=== PATIENT | female | born 1945 | race Caucasian/White ===

== ENCOUNTER 2020-12-22 07:50 | Emergency (ER) | payer MEDICARE, MEDICAID ==
[2020-12-22] MEDS ORDERED: Morphine 4 MG/ML VIAL ONE (08:19)
[2020-12-22] MEDS ORDERED: Ondansetron PF 4 MG/2 ML Vial ONE (08:19)
[2020-12-22 08:31] LABS: #Eosinphils 0.2 10x3/uL (0.0-0.5); #Monocytes 0.5 10x3/uL (0.0-1.1); #Neutrophils 3.5 10x3/uL (1.5-8.4); %Basophils 0.3 % (0.0-2.0); %Eosinophils 2.6 % (0.0-6.0); %Lymphocytes 35.2 % (18.0-47.0); %Monocytes 7.2 % (0.0-10.0); %Neutrophils 54.1 % (40.0-75.0); Hemoglobin 11.2 g/dL (12.0-15.5); Mean Corpuscular HGB CONC 30.9 g/dL (32.0-36.0); Mean Corpuscular Hemoglobin 31.1 pg (27.0-33.0); Mean Corpuscular Volume 100.6 fl (81.6-98.3); Mean Platelet Volume 10.9 fl (7.4-10.4); Platelet Count 193 10x3/uL (150-450); RBC Distribution Width 12.8 % (11.5-14.5); White Blood Cell (WBC) Count 6.5 10x3/uL (3.5-10.5)
[2020-12-22 08:46] LABS: ALT (SGPT) 10 U/L (8-55); AST (SGOT) 11 U/L (5-34); Albumin 3.6 g/dL (3.4-4.8); Alkaline Phosphatase 61 U/L (40-110); Anion Gap 16 mmol/L (10-20); BUN (Urea Nitrogen) 21 mg/dL (9.8-20.1); Bilirubin, Total 0.3 mg/dL (0.2-1.2); Calc. Creatinine Clearance 0 mL/min (70-130); Calcium 8.7 mg/dL (7.8-10.44); Carbon Dioxide 36 mmol/L (23-31); Chloride 96 mmol/L (98-107); Globulin 2.5 g/dL (2.4-3.5); Glucose 107 mg/dL (83-110); Magnesium 2.2 mg/dL (1.6-2.6); Potassium 4.2 mmol/L (3.5-5.1); Protein, Total 6.1 g/dL (5.8-8.1); Sodium 144 mmol/L (136-145)
[2020-12-22 09:06] LABS: INR-International Normal Ratio 0.9; PTT 24.5 sec (22.0-33.0); Prothrombin Time 10.4 sec (9.5-12.1)
[2020-12-22] MEDS ORDERED: Metoclopramide HCl 10 MG/2 ML VIAL ONE (09:42)
[2020-12-22 16:38] LABS: Bilirubin Neg (Negative); Blood, Urine Negative (Negative); Clarity Clear (Clear); Glucose, Urine (Dipstick) Normal (Negative); Ketone, Urine Negative (Negative); Leukocyte 25 (Negative); Nitrite Negative (Negative); Protein, Urine (Dipstick) 30 mg/dl (Neg-Trace); Specific Gravity, Urine 1.025 (1.002-1.036)
[2020-12-22 16:57] LABS: Bacteria/HPF Rare-Few HPF (None Seen); RBC/HPF 0-3 HPF (0-3); Renal Epithelial 0-3 HPF (None Seen); WBC/HPF 0-3 HPF (0-3)
== END 2020-12-22 18:11 ==
LOC: CSHERS 07:50
DX: S80.02XA Contusion of left knee, initial encounter (principal); S40.011A Contusion of right shoulder, initial encounter; I11.0 Hypertensive heart disease with heart failure; I50.9 Heart failure, unspecified; E78.5 Hyperlipidemia, unspecified; E66.9 Obesity, unspecified; M54.5 Low back pain; J44.9 Chronic obstructive pulmonary disease, unspecified; I25.10 Atherosclerotic heart disease of native coronary artery without angina pectoris; I25.2 Old myocardial infarction; Z87.891 Personal history of nicotine dependence; Z91.81 History of falling; W19.XXXA Unspecified fall, initial encounter
CPT/HCPCS: 72100; 80053; 81001; 83735; 85025; 85610; 85730; 93005; 96374; 96375; J2270; J2405; J2765

== ENCOUNTER 2022-02-04 21:54 | Emergency (ER) | payer MEDICARE, MEDICAID ==
[2022-02-04] MEDS ORDERED: Ketorolac Tromethamine 30 MG/ML VIAL ONE ×2 (23:10→23:11)
== END 2022-02-05 00:18 | disposition home or self-care (01) ==
LOC: CSHERS 21:54
DX: M25.571 Pain in right ankle and joints of right foot (principal); I25.2 Old myocardial infarction; I11.0 Hypertensive heart disease with heart failure; I50.9 Heart failure, unspecified; E78.5 Hyperlipidemia, unspecified; J44.9 Chronic obstructive pulmonary disease, unspecified; Z87.891 Personal history of nicotine dependence; Z79.899 Other long term (current) drug therapy
CPT/HCPCS: 96372; J1885

== ENCOUNTER 2022-04-22 01:00 | Inpatient (IN) | payer MEDICARE, MEDICAID ==
[2022-04-22 02:10] LABS: #Eosinphils 0.3 10x3/uL (0.0-0.5); #Monocytes 0.6 10x3/uL (0.0-1.1); #Neutrophils 6.4 10x3/uL (1.5-8.4); %Basophils 0.2 % (0.0-2.0); %Lymphocytes 15.9 % (18.0-47.0); %Monocytes 7.1 % (0.0-10.0); %Neutrophils 72.9 % (40.0-75.0); Hemoglobin 9.8 g/dL (12.0-15.5); Mean Corpuscular HGB CONC 29.5 g/dL (32.0-36.0); Mean Corpuscular Volume 101.5 fl (81.6-98.3); Platelet Count 184 10x3/uL (150-450); RBC Distribution Width 13.3 % (11.5-14.5); Red Blood Cell (RBC) Count 3.27 10x6/uL (3.90-5.03); White Blood Cell (WBC) Count 8.8 10x3/uL (3.5-10.5)
[2022-04-22 02:19] LABS: ALT (SGPT) 12 U/L (8-55); AST (SGOT) 17 U/L (5-34); Albumin 3.6 g/dL (3.4-4.8); Alkaline Phosphatase 67 U/L (40-110); BUN (Urea Nitrogen) 26 mg/dL (9.8-20.1); Bilirubin, Total 0.3 mg/dL (0.2-1.2); Calc. Creatinine Clearance 0 mL/min (70-130); Calcium 8.9 mg/dL (7.8-10.44); Estimated GFR 45; Globulin 2.7 g/dL (2.4-3.5); Glucose 116 mg/dL (83-110); Magnesium 2.1 mg/dL (1.6-2.6); Protein, Total 6.3 g/dL (5.8-8.1)
[2022-04-22 02:26] LABS: Anion Gap 14 mmol/L (10-20); Chloride 92 mmol/L (98-107); Potassium 4.4 mmol/L (3.5-5.1); Sodium 143 mmol/L (136-145)
[2022-04-22 02:35] LABS: Carbon Dioxide Greater than 37 mmol/L (23-31)
[2022-04-22 02:54] LABS: Hypochromia SLIGHT = 6-15 cells (100X) (0-5/hpf); Platelet Morphology Comment Appears Adequate; Stomatocytes SLIGHT = 2-5 cells (100X) (0-1/hpf)
[2022-04-22 03:05] LABS: INR-International Normal Ratio 0.9
[2022-04-22] MEDS ORDERED: methylPREDNISolone Sod Succ/PF 125 MG/2 ML VIAL ONE (03:08)
[2022-04-22] MEDS ORDERED: Nitroglycerin 2% Ointment 1 INCH/1 GM Packet ONE (03:09)
[2022-04-22] MEDS ORDERED: Furosemide 40 MG/4 ML VIAL ONE (03:09)
[2022-04-22 03:32] LABS: SARS-CoV-2 NAA Rapid Test Not Detected (NotDetected)
[2022-04-22] MEDS ORDERED: Ondansetron ODT 4 MG TAB PO PRN (05:06)
[2022-04-22] MEDS ORDERED: Ondansetron PF 4 MG/2 ML Vial IVP PRN (05:06)
[2022-04-22] MEDS ORDERED: Senokot S 8.6-50 MG TAB PO PRN (05:06)
[2022-04-22] MEDS ORDERED: Acetaminophen 325 MG TAB PO PRN (05:06)
[2022-04-22 05:15] VITALS: BMI 60.1
[2022-04-22 05:19] LABS: Actual Bicarbonate (HCO3a) 41.2 mEq/L (22-28); Base Excess (BEa) 12.9 mEq/L (-2.0 to +3.0); Calcium, Ionized (arterial) 1.11 mmol/L (1.12-1.30); Carboxyhemoglobin (COHb) 0.6 gm% (0.0-3.0); Hemoglobin (Hb) 10.5 g/dL (12.0-16.0); O2 Tension (PaO2), arterial 88.5 mmHg (> 70.0); Potassium - ABG Lab 4.3 mmol/L (3.70-5.30); Puncture Site LRA; pH, Arterial 7.34 (7.35-7.45)
[2022-04-22] MEDS ORDERED: Furosemide 40 MG/4 ML VIAL SLOW IVP SCH (06:00)
[2022-04-22 06:14] LABS: Thyroid Stimulating Hormone 1.1649 uIU/mL (0.35-4.94)
[2022-04-22] MEDS: methylPREDNISolone Sod Succ 40 MG VIAL IVP SCH ×2 (06:19→16:47)
[2022-04-22] MEDS: Arformoterol 15 MCG/2 ML NEB NEB SCH ×2 (07:37→19:17)
[2022-04-22] MEDS: Budesonide 0.5 MG/2 ML NEB NEB SCH ×2 (07:38→19:18)
[2022-04-22 07:59] LABS: Ferritin 56.6 ng/mL (10-291)
[2022-04-22] MEDS: Azithromycin 500 MG in Sodium Chloride 0.9% 250 ML 250 ML IVPB SCH (08:15)
[2022-04-22] MEDS: Potassium Chloride 20 MEQ TAB PO SCH (08:16)
[2022-04-22] MEDS: Clopidogrel Bisulfate 75 MG TAB PO SCH (08:16)
[2022-04-22] MEDS: Aspirin 81 mg Enteric Coated Tablet PO SCH (08:17)
[2022-04-22] MEDS: Enoxaparin Sodium 40 MG/0.4 ML SYRINGE SC SCH (08:18)
[2022-04-22] MEDS: Ezetimibe 10 MG TAB PO SCH (08:41)
[2022-04-22] MEDS: Furosemide 40 MG TAB PO SCH ×2 (08:43→14:07)
[2022-04-22 13:29] LABS: Hemoglobin A1c 4.9 % (4.0-6.0)
[2022-04-22] MEDS: Carvedilol 6.25 MG TAB PO SCH (16:47)
[2022-04-22] MEDS: Mometasone/Formoterol 200/5 60 PUFF INH SCH (19:19)
[2022-04-23 04:31] LABS: #Monocytes 0.5 10x3/uL (0.0-1.1); #Neutrophils 6.2 10x3/uL (1.5-8.4); %Basophils 0.1 % (0.0-2.0); %Lymphocytes 17.3 % (18.0-47.0); %Monocytes 6.6 % (0.0-10.0); %Neutrophils 75.4 % (40.0-75.0); Hemoglobin 9.3 g/dL (12.0-15.5); Mean Corpuscular HGB CONC 31.5 g/dL (32.0-36.0); Mean Corpuscular Hemoglobin 30.3 pg (27.0-33.0); Mean Corpuscular Volume 96.1 fl (81.6-98.3); Mean Platelet Volume 10.9 fl (7.4-10.4); Platelet Count 188 10x3/uL (150-450); RBC Distribution Width 13.1 % (11.5-14.5); Red Blood Cell (RBC) Count 3.07 10x6/uL (3.90-5.03); White Blood Cell (WBC) Count 8.2 10x3/uL (3.5-10.5)
[2022-04-23 04:49] LABS: BUN (Urea Nitrogen) 30 mg/dL (9.8-20.1); Calc. Creatinine Clearance 100 mL/min (70-130); Calcium 8.7 mg/dL (7.8-10.44); Estimated GFR 54; Glucose 138 mg/dL (83-110)
[2022-04-23 04:57] LABS: Anion Gap 14 mmol/L (10-20); Chloride 88 mmol/L (98-107); Potassium 4.1 mmol/L (3.5-5.1); Sodium 140 mmol/L (136-145)
[2022-04-23 04:59] LABS: Carbon Dioxide Greater than 37 mmol/L (23-31)
[2022-04-23] MEDS: methylPREDNISolone Sod Succ 40 MG VIAL IVP SCH ×2 (05:40→17:05)
[2022-04-23] MEDS: Potassium Chloride 20 MEQ TAB PO SCH (08:46)
[2022-04-23] MEDS: Furosemide 40 MG TAB PO SCH ×2 (08:46→13:43)
[2022-04-23] MEDS: Clopidogrel Bisulfate 75 MG TAB PO SCH (08:46)
[2022-04-23] MEDS: Ezetimibe 10 MG TAB PO SCH (08:46)
[2022-04-23] MEDS: Aspirin 81 mg Enteric Coated Tablet PO SCH (08:46)
[2022-04-23] MEDS: Enoxaparin Sodium 40 MG/0.4 ML SYRINGE SC SCH (08:47)
[2022-04-23] MEDS: Azithromycin 500 MG in Sodium Chloride 0.9% 250 ML 250 ML IVPB SCH (08:47)
[2022-04-23] MEDS: Budesonide 0.5 MG/2 ML NEB NEB SCH ×2 (08:51→19:20)
[2022-04-23] MEDS: Arformoterol 15 MCG/2 ML NEB NEB SCH ×2 (09:05→19:19)
[2022-04-23] MEDS: Carvedilol 6.25 MG TAB PO SCH ×2 (09:51→17:05)
[2022-04-23] MEDS: Mometasone/Formoterol 200/5 60 PUFF INH SCH (10:08)
[2022-04-23] MEDS: Mirtazapine 15 MG TAB PO SCH (21:09)
[2022-04-24] MEDS: methylPREDNISolone Sod Succ 40 MG VIAL IVP SCH ×2 (05:51→17:21)
[2022-04-24] MEDS: Budesonide 0.5 MG/2 ML NEB NEB SCH ×2 (07:30→19:20)
[2022-04-24] MEDS: Arformoterol 15 MCG/2 ML NEB NEB SCH ×2 (07:30→19:20)
[2022-04-24] MEDS: Azithromycin 500 MG in Sodium Chloride 0.9% 250 ML 250 ML IVPB SCH (08:13)
[2022-04-24] MEDS: Enoxaparin Sodium 40 MG/0.4 ML SYRINGE SC SCH (08:13)
[2022-04-24] MEDS: Carvedilol 6.25 MG TAB PO SCH ×2 (08:14→16:45)
[2022-04-24] MEDS: Clopidogrel Bisulfate 75 MG TAB PO SCH (08:14)
[2022-04-24] MEDS: Potassium Chloride 20 MEQ TAB PO SCH (08:14)
[2022-04-24] MEDS: Aspirin 81 mg Enteric Coated Tablet PO SCH (08:14)
[2022-04-24] MEDS: Furosemide 40 MG TAB PO SCH ×2 (08:14→14:17)
[2022-04-24] MEDS: Ezetimibe 10 MG TAB PO SCH (08:20)
[2022-04-24] MEDS: Mirtazapine 15 MG TAB PO SCH (19:36)
[2022-04-25 05:00] LABS: #Monocytes 0.6 10x3/uL (0.0-1.1); #Neutrophils 6.2 10x3/uL (1.5-8.4); %Basophils 0.1 % (0.0-2.0); %Lymphocytes 13.6 % (18.0-47.0); %Monocytes 7.6 % (0.0-10.0); %Neutrophils 77.2 % (40.0-75.0); Hemoglobin 10.3 g/dL (12.0-15.5); Mean Corpuscular HGB CONC 30.1 g/dL (32.0-36.0); Mean Corpuscular Hemoglobin 29.3 pg (27.0-33.0); Mean Corpuscular Volume 97.4 fl (81.6-98.3); Mean Platelet Volume 11.3 fl (7.4-10.4); Platelet Count 203 10x3/uL (150-450); RBC Distribution Width 13.2 % (11.5-14.5); Red Blood Cell (RBC) Count 3.51 10x6/uL (3.90-5.03)
[2022-04-25 05:01] LABS: BUN (Urea Nitrogen) 34 mg/dL (9.8-20.1); Calc. Creatinine Clearance 104 mL/min (70-130); Calcium 8.4 mg/dL (7.8-10.44); Estimated GFR 57; Glucose 139 mg/dL (83-110)
[2022-04-25 05:08] LABS: Anion Gap 15 mmol/L (10-20); Chloride 94 mmol/L (98-107); Potassium 4.3 mmol/L (3.5-5.1); Sodium 146 mmol/L (136-145)
[2022-04-25 05:12] LABS: Carbon Dioxide 41 mmol/L (23-31)
[2022-04-25] MEDS: methylPREDNISolone Sod Succ 40 MG VIAL IVP SCH (05:35)
[2022-04-25] MEDS: Budesonide 0.5 MG/2 ML NEB NEB SCH ×2 (07:05→19:18)
[2022-04-25] MEDS: Arformoterol 15 MCG/2 ML NEB NEB SCH ×2 (07:05→19:18)
[2022-04-25] MEDS: Carvedilol 12.5 MG TAB PO SCH ×2 (08:38→17:06)
[2022-04-25] MEDS: Aspirin 81 mg Enteric Coated Tablet PO SCH (08:38)
[2022-04-25] MEDS: Potassium Chloride 20 MEQ TAB PO SCH (08:38)
[2022-04-25] MEDS: Clopidogrel Bisulfate 75 MG TAB PO SCH (08:38)
[2022-04-25] MEDS: Furosemide 40 MG TAB PO SCH ×2 (08:38→14:57)
[2022-04-25] MEDS: Enoxaparin Sodium 40 MG/0.4 ML SYRINGE SC SCH (08:39)
[2022-04-25] MEDS: Ezetimibe 10 MG TAB PO SCH (08:40)
[2022-04-25] MEDS ORDERED: Azithromycin 250 MG TAB PO SCH (09:00)
[2022-04-25 19:42] VITALS: BP 132/79; TEMP 98.6
[2022-04-25] MEDS: Mirtazapine 15 MG TAB PO SCH (19:46)
[2022-04-26] MEDS ORDERED: predniSONE 20 MG TAB PO SCH (08:00)
== END 2022-04-25 20:25 | DRG 291 ==
LOC: CSHERS 01:00 → CSHICU 04:51
PROVIDERS: ADMIT Family Medicine; ATTEND Hospitalist
PROC: 5A09457 Assistance with Respiratory Ventilation, 24-96 Consecutive Hours, Continuous Positive Airway Pressure (ICD-10-PCS; principal; 2022-04-22)
DX: I13.0 Hypertensive heart and chronic kidney disease with heart failure and stage 1 through stage 4 chronic kidney disease, or unspecified chronic kidney disease (principal); I50.33 Acute on chronic diastolic (congestive) heart failure; J96.21 Acute and chronic respiratory failure with hypoxia; J96.22 Acute and chronic respiratory failure with hypercapnia; J44.1 Chronic obstructive pulmonary disease with (acute) exacerbation; Z68.44 Body mass index [BMI] 60.0-69.9, adult; N17.9 Acute kidney failure, unspecified; G47.33 Obstructive sleep apnea (adult) (pediatric); I25.10 Atherosclerotic heart disease of native coronary artery without angina pectoris; E78.5 Hyperlipidemia, unspecified; K21.9 Gastro-esophageal reflux disease without esophagitis; E66.01 Morbid (severe) obesity due to excess calories; Z66 Do not resuscitate; R53.1 Weakness; D53.9 Nutritional anemia, unspecified; N18.31 Chronic kidney disease, stage 3a; Z60.2 Problems related to living alone; Z20.822 Contact with and (suspected) exposure to COVID-19; I25.2 Old myocardial infarction; Z95.5 Presence of coronary angioplasty implant and graft; Z99.81 Dependence on supplemental oxygen; Z87.891 Personal history of nicotine dependence; Z88.1 Allergy status to other antibiotic agents; Z88.2 Allergy status to sulfonamides; Z79.899 Other long term (current) drug therapy; Z79.82 Long term (current) use of aspirin; Z79.02 Long term (current) use of antithrombotics/antiplatelets; Z90.710 Acquired absence of both cervix and uterus; Z85.42 Personal history of malignant neoplasm of other parts of uterus; Z85.43 Personal history of malignant neoplasm of ovary; Z90.49 Acquired absence of other specified parts of digestive tract; Z98.49 Cataract extraction status, unspecified eye
CPT/HCPCS: 36415; 36416; 36600; 70450; 71045; 72125; 80048; 80053; 80061; 82607; 82728; 82805; 83036; 83735; 83880; 84443; 84484; 85025; 85610; 85730; 93005; 93306; 94640; 94660; 94760; 96374; 96375; J0456; J1650; J1940; J2920; J2930; J7050; J7620; J7626; U0002

== ENCOUNTER 2022-06-08 00:15 | Emergency (ER) | payer MEDICARE, MEDICAID ==
[2022-06-08] MEDS ORDERED: Mag-Al Plus 1200 MG/1200 MG/120 MG/30 ML UDCUP ONE (01:23)
== END 2022-06-08 03:10 | disposition home or self-care (01) ==
LOC: CSHERS 00:15
DX: K21.9 Gastro-esophageal reflux disease without esophagitis (principal); I25.10 Atherosclerotic heart disease of native coronary artery without angina pectoris; I11.0 Hypertensive heart disease with heart failure; I50.9 Heart failure, unspecified; I25.2 Old myocardial infarction; E78.5 Hyperlipidemia, unspecified; J44.9 Chronic obstructive pulmonary disease, unspecified; Z87.891 Personal history of nicotine dependence; Z79.899 Other long term (current) drug therapy; Z79.82 Long term (current) use of aspirin
CPT/HCPCS: 99284

== ENCOUNTER 2022-07-14 22:38 | Inpatient (IN) | payer MEDICARE, MEDICAID ==
[2022-07-14 23:14] LABS: #Eosinphils 0.3 10x3/uL (0.0-0.5); #Monocytes 0.7 10x3/uL (0.0-1.1); #Neutrophils 5.8 10x3/uL (1.5-8.4); %Basophils 0.3 % (0.0-2.0); %Eosinophils 3.5 % (0.0-6.0); %Lymphocytes 28.4 % (18.0-47.0); %Monocytes 7.4 % (0.0-10.0); %Neutrophils 59.8 % (40.0-75.0); Hemoglobin 9.6 g/dL (12.0-15.5); Mean Corpuscular HGB CONC 29.5 g/dL (32.0-36.0); Mean Corpuscular Hemoglobin 28.8 pg (27.0-33.0); Mean Corpuscular Volume 97.6 fl (81.6-98.3); Mean Platelet Volume 10.4 fl (7.4-10.4); Platelet Count 237 10x3/uL (150-450); RBC Distribution Width 14.2 % (11.5-14.5); Red Blood Cell (RBC) Count 3.33 10x6/uL (3.90-5.03); White Blood Cell (WBC) Count 9.7 10x3/uL (3.5-10.5)
[2022-07-14 23:28] LABS: ALT (SGPT) 10 U/L (8-55); AST (SGOT) 13 U/L (5-34); Albumin 3.8 g/dL (3.4-4.8); Alkaline Phosphatase 92 U/L (40-110); BUN (Urea Nitrogen) 17 mg/dL (9.8-20.1); Bilirubin, Total 0.3 mg/dL (0.2-1.2); Calc. Creatinine Clearance 0 mL/min (70-130); Estimated GFR 58; Globulin 2.3 g/dL (2.4-3.5); Glucose 98 mg/dL (83-110); Protein, Total 6.1 g/dL (5.8-8.1)
[2022-07-14 23:36] LABS: Anion Gap 16 mmol/L (10-20); Carbon Dioxide 38 mmol/L (23-31); Chloride 95 mmol/L (98-107); Potassium 3.9 mmol/L (3.5-5.1); Sodium 145 mmol/L (136-145)
[2022-07-15] MEDS ORDERED: Nitroglycerin 2% Ointment 1 INCH/1 GM Packet ONE (00:06)
[2022-07-15] MEDS ORDERED: Aspirin Chewable 81 MG TAB ONE ×2 (00:06→08:28)
[2022-07-15] MEDS ORDERED: Acetaminophen 325 MG TAB PO PRN (00:33)
[2022-07-15] MEDS ORDERED: Guaifenesin DM 100-10/5 ML UDCUP PO PRN (00:33)
[2022-07-15] MEDS ORDERED: Ondansetron PF 4 MG/2 ML Vial IVP PRN (00:33)
[2022-07-15] MEDS ORDERED: Senokot S 8.6-50 MG TAB PO PRN (00:33)
[2022-07-15 00:37] LABS: Platelet Morphology Comment Appears Adequate; RBC Morphology Normal
[2022-07-15] MEDS ORDERED: Nitroglycerin 0.4 MG TAB (25 Tab Bottle) SL PRN ×2 (00:38→11:15)
[2022-07-15 07:24] LABS: SARS-CoV-2 NAA Rapid Test Not Detected (NotDetected)
[2022-07-15] MEDS ORDERED: Furosemide 40 MG TAB ONE (08:28)
[2022-07-15] MEDS ORDERED: Clopidogrel Bisulfate 75 MG TAB ONE (08:28)
[2022-07-15] MEDS ORDERED: Potassium Chloride 20 MEQ TAB ONE (08:28)
[2022-07-15] MEDS ORDERED: Enoxaparin Sodium 40 MG/0.4 ML SYRINGE ONE (08:29)
[2022-07-15] MEDS ORDERED: Carvedilol 12.5 MG TAB ONE (08:30)
[2022-07-15] MEDS: Clopidogrel Bisulfate 75 MG TAB PO SCH (09:04)
[2022-07-15] MEDS: Enoxaparin Sodium 40 MG/0.4 ML SYRINGE SC SCH (09:04)
[2022-07-15] MEDS: Potassium Chloride 20 MEQ TAB PO SCH (09:05)
[2022-07-15] MEDS: Aspirin 81 mg Enteric Coated Tablet PO SCH (09:05)
[2022-07-15] MEDS: Carvedilol 12.5 MG TAB PO SCH ×2 (09:05→18:00)
[2022-07-15] MEDS: Furosemide 40 MG TAB PO SCH ×2 (09:05→21:45)
[2022-07-15] MEDS: Ezetimibe 10 MG TAB PO SCH (09:05)
[2022-07-15] MEDS ORDERED: Verapamil 5 MG/2 ML VIAL ONE (09:40)
[2022-07-15] MEDS ORDERED: Heparin 10,000 UNITS/ 10 ML VIAL ONE ×2 (09:40→10:15)
[2022-07-15] MEDS ORDERED: Lidocaine 1% (PF) 30 ML VIAL ONE (09:40)
[2022-07-15] MEDS ORDERED: Nitroglycerin 50 MG/250 ML BOT 250 ML ONE (09:40)
[2022-07-15] MEDS ORDERED: Adenosine 6 MG/2 ML VIAL ONE (09:40)
[2022-07-15] MEDS ORDERED: Bivalirudin 250 MG VIAL ONE (09:41)
[2022-07-15] MEDS ORDERED: Midazolam HCl 2 mg/2 ml Vial ONE (09:50)
[2022-07-15] MEDS ORDERED: Fentanyl 100 MCG/2 ML VIAL ONE (09:50)
[2022-07-15] MEDS ORDERED: Atropine Sulfate 0.4 mg/1 ml Vial ONE (10:20)
[2022-07-15] MEDS ORDERED: PHENYLEPHRINE-NS 100 MCG/ML 10 ML SYRINGE ONE (10:20)
[2022-07-15] MEDS ORDERED: Iopamidol 300 61% 50 ML VIAL FS ONE (10:39)
[2022-07-15] MEDS ORDERED: Iopamidol 300 61% 100 ML VIAL FS ONE (10:39)
[2022-07-15] MEDS: Sodium Chloride 0.9% 1,000 ML IV SCH ×2 (11:20→21:45)
[2022-07-15 13:53] VITALS: BMI 58.6
[2022-07-15] MEDS: Sertraline 25 MG TAB PO SCH (21:45)
[2022-07-16 05:39] LABS: #Eosinphils 0.3 10x3/uL (0.0-0.5); #Monocytes 0.5 10x3/uL (0.0-1.1); #Neutrophils 5.3 10x3/uL (1.5-8.4); %Basophils 0.3 % (0.0-2.0); %Eosinophils 3.5 % (0.0-6.0); %Lymphocytes 20.3 % (18.0-47.0); %Monocytes 6.9 % (0.0-10.0); %Neutrophils 68.2 % (40.0-75.0); Hemoglobin 9.3 g/dL (12.0-15.5); Mean Corpuscular HGB CONC 29.2 g/dL (32.0-36.0); Mean Corpuscular Hemoglobin 28.8 pg (27.0-33.0); Mean Corpuscular Volume 98.5 fl (81.6-98.3); Mean Platelet Volume 10.5 fl (7.4-10.4); Platelet Count 216 10x3/uL (150-450); RBC Distribution Width 14.1 % (11.5-14.5); Red Blood Cell (RBC) Count 3.23 10x6/uL (3.90-5.03); White Blood Cell (WBC) Count 7.8 10x3/uL (3.5-10.5)
[2022-07-16 05:50] LABS: ALT (SGPT) 7 U/L (8-55); AST (SGOT) 12 U/L (5-34); Albumin 3.3 g/dL (3.4-4.8); Alkaline Phosphatase 81 U/L (40-110); BUN (Urea Nitrogen) 11 mg/dL (9.8-20.1); Bilirubin, Total 0.3 mg/dL (0.2-1.2); Calc. Creatinine Clearance 133 mL/min (70-130); Calcium 8.3 mg/dL (7.8-10.44); Estimated GFR 80; Globulin 2.3 g/dL (2.4-3.5); Glucose 113 mg/dL (83-110); Protein, Total 5.6 g/dL (5.8-8.1)
[2022-07-16 05:58] LABS: Anion Gap 12 mmol/L (10-20); Carbon Dioxide 39 mmol/L (23-31); Chloride 97 mmol/L (98-107); Potassium 3.7 mmol/L (3.5-5.1); Sodium 144 mmol/L (136-145)
[2022-07-16 06:13] LABS: Basophilic Stippling SLIGHT = 1-2 cells (100X) (None Seen); Hypochromia SLIGHT = 6-15 cells (100X) (0-5/hpf)
[2022-07-16 06:14] LABS: Platelet Morphology Comment Appears Adequate
[2022-07-16] MEDS: Ezetimibe 10 MG TAB PO SCH (08:04)
[2022-07-16] MEDS: Losartan Potassium 50 MG TAB PO SCH (08:04)
[2022-07-16] MEDS: Carvedilol 12.5 MG TAB PO SCH ×2 (08:05→18:36)
[2022-07-16] MEDS: Furosemide 40 MG TAB PO SCH ×2 (08:05→21:06)
[2022-07-16] MEDS: Clopidogrel Bisulfate 75 MG TAB PO SCH (08:14)
[2022-07-16] MEDS: Aspirin 81 mg Enteric Coated Tablet PO SCH (08:14)
[2022-07-16] MEDS: Potassium Chloride 20 MEQ TAB PO SCH (08:14)
[2022-07-16] MEDS: Enoxaparin Sodium 40 MG/0.4 ML SYRINGE SC SCH (08:18)
[2022-07-16 09:54] LABS: ALV-art Gradient 143.625 mmHg (0-20); Actual Bicarbonate (HCO3a) 41.9 mEq/L (22-28); CO2 Tension 93.1 mmHg (35.0-45.0); Calcium, Ionized (arterial) 1.12 mmol/L (1.12-1.30); Carboxyhemoglobin (COHb) 0.8 gm% (0.0-3.0); O2 Tension (PaO2), arterial 96.5 mmHg (> 70.0); Puncture Site LRA; pH, Arterial 7.27 (7.35-7.45)
[2022-07-16] MEDS: Sertraline 25 MG TAB PO SCH (21:06)
[2022-07-16] MEDS: Calcium Carbonate 500 MG ChewTAB PO PRN (21:26)
[2022-07-17 06:08] LABS: Anion Gap 15 mmol/L (10-20); BUN (Urea Nitrogen) 10 mg/dL (9.8-20.1); Calc. Creatinine Clearance 129 mL/min (70-130); Calcium 8.4 mg/dL (7.8-10.44); Carbon Dioxide 37 mmol/L (23-31); Chloride 96 mmol/L (98-107); Estimated GFR 77; Glucose 92 mg/dL (83-110); Potassium 3.8 mmol/L (3.5-5.1); Sodium 144 mmol/L (136-145)
[2022-07-17] MEDS: Sodium Chloride 0.9% 1,000 ML IV SCH (09:50)
[2022-07-17] MEDS: Aspirin 81 mg Enteric Coated Tablet PO SCH (10:23)
[2022-07-17] MEDS: Furosemide 40 MG TAB PO SCH ×2 (10:23→22:14)
[2022-07-17] MEDS: Losartan Potassium 50 MG TAB PO SCH (10:23)
[2022-07-17] MEDS: Ezetimibe 10 MG TAB PO SCH (10:23)
[2022-07-17] MEDS: Carvedilol 12.5 MG TAB PO SCH ×2 (10:23→17:51)
[2022-07-17] MEDS: Clopidogrel Bisulfate 75 MG TAB PO SCH (10:24)
[2022-07-17] MEDS: Potassium Chloride 20 MEQ TAB PO SCH (10:24)
[2022-07-17] MEDS: Enoxaparin Sodium 40 MG/0.4 ML SYRINGE SC SCH (10:24)
[2022-07-17] MEDS: Sertraline 25 MG TAB PO SCH (22:14)
[2022-07-17] MEDS: Calcium Carbonate 500 MG ChewTAB PO PRN (22:15)
[2022-07-18] MEDS ORDERED: Losartan Potassium 50 MG TAB PO SCH (09:00)
[2022-07-18] MEDS: Enoxaparin Sodium 40 MG/0.4 ML SYRINGE SC SCH (10:23)
[2022-07-18] MEDS: Potassium Chloride 20 MEQ TAB PO SCH (10:24)
[2022-07-18] MEDS: Ezetimibe 10 MG TAB PO SCH (10:24)
[2022-07-18] MEDS: Aspirin 81 mg Enteric Coated Tablet PO SCH (10:25)
[2022-07-18] MEDS: Clopidogrel Bisulfate 75 MG TAB PO SCH (10:25)
[2022-07-18] MEDS: Carvedilol 12.5 MG TAB PO SCH (10:25)
[2022-07-18] MEDS: Furosemide 40 MG TAB PO SCH (10:25)
[2022-07-18 12:04] VITALS: BP 165/75; TEMP 98.6
== END 2022-07-18 12:00 | DRG 246 ==
LOC: CSHERS 22:38 → CSHERHOLD 07-15 01:01 → INTOOBSV 07-15 01:01 → CSHTELE 07-15 10:51 → OBSVTOIN 07-16 16:12
PROVIDERS: ADMIT Student in an Organized Health Care Education/Training Program; ATTEND Internal Medicine
PROC: 027135Z Dilation of Coronary Artery, Two Arteries with Two Drug-eluting Intraluminal Devices, Percutaneous Approach (ICD-10-PCS; principal; 2022-07-15)
PROC: 4A023N7 Measurement of Cardiac Sampling and Pressure, Left Heart, Percutaneous Approach (ICD-10-PCS; 2022-07-15)
PROC: B2111ZZ Fluoroscopy of Multiple Coronary Arteries using Low Osmolar Contrast (ICD-10-PCS; 2022-07-15)
PROC: B2151ZZ Fluoroscopy of Left Heart using Low Osmolar Contrast (ICD-10-PCS; 2022-07-15)
PROC: B240ZZ3 Ultrasonography of Single Coronary Artery, Intravascular (ICD-10-PCS; 2022-07-15)
PROC: 5A09357 Assistance with Respiratory Ventilation, Less than 24 Consecutive Hours, Continuous Positive Airway Pressure (ICD-10-PCS; 2022-07-16)
DX: I25.110 Atherosclerotic heart disease of native coronary artery with unstable angina pectoris (principal); J96.21 Acute and chronic respiratory failure with hypoxia; J96.22 Acute and chronic respiratory failure with hypercapnia; E66.2 Morbid (severe) obesity with alveolar hypoventilation; I50.32 Chronic diastolic (congestive) heart failure; I13.0 Hypertensive heart and chronic kidney disease with heart failure and stage 1 through stage 4 chronic kidney disease, or unspecified chronic kidney disease; Z68.43 Body mass index [BMI] 50.0-59.9, adult; Z66 Do not resuscitate; J44.9 Chronic obstructive pulmonary disease, unspecified; I48.91 Unspecified atrial fibrillation; K21.9 Gastro-esophageal reflux disease without esophagitis; R91.8 Other nonspecific abnormal finding of lung field; D63.1 Anemia in chronic kidney disease; Z74.09 Other reduced mobility; R13.10 Dysphagia, unspecified; N18.30 Chronic kidney disease, stage 3 unspecified; F32.A Depression, unspecified; Z20.822 Contact with and (suspected) exposure to COVID-19; Z88.1 Allergy status to other antibiotic agents; Z90.49 Acquired absence of other specified parts of digestive tract; Z90.710 Acquired absence of both cervix and uterus; Z87.891 Personal history of nicotine dependence; Z82.49 Family history of ischemic heart disease and other diseases of the circulatory system; Z98.890 Other specified postprocedural states; Z88.8 Allergy status to other drugs, medicaments and biological substances; Z88.2 Allergy status to sulfonamides; Z99.81 Dependence on supplemental oxygen; Z95.5 Presence of coronary angioplasty implant and graft; Z79.899 Other long term (current) drug therapy; Z79.82 Long term (current) use of aspirin; Z98.49 Cataract extraction status, unspecified eye
CPT/HCPCS: 36415; 36600; 71045; 80048; 80053; 82805; 83880; 84443; 84484; 85025; 85347; 92928; 92978; 92979; 93005; 93010; 93458; 93970; 94640; 94660; 94760; 94762; 96372; 99152; 99153; C1725; C1753; C1769; C1874; C1887; C1894; C9600; G0378; J0153; J0461; J0583; J1644; J1650; J2001; J2250; J3010; J7050; J7620; Q9967; U0002

== ENCOUNTER 2022-08-06 04:12 | Observation (INO) | payer MEDICARE, MEDICAID ==
[2022-08-06 05:22] LABS: SARS-CoV-2 NAA Rapid Test Not Detected (NotDetected)
[2022-08-06] MEDS ORDERED: Nitroglycerin 2% Ointment 1 INCH/1 GM Packet ONE (05:28)
[2022-08-06] MEDS ORDERED: Meclizine HCl 25 MG TAB PO PRN ×2 (05:49→06:44)
[2022-08-06] MEDS ORDERED: Nitroglycerin 2% Ointment 1 INCH/1 GM Packet TOP SCH (06:00)
[2022-08-06 06:05] LABS: BUN (Urea Nitrogen) 12 mg/dL (9.8-20.1); Calc. Creatinine Clearance 0 mL/min (70-130); Calcium 8.8 mg/dL (7.8-10.44); Estimated GFR 71; Glucose 101 mg/dL (83-110); Magnesium 2.4 mg/dL (1.6-2.6)
[2022-08-06 06:13] LABS: Anion Gap 14 mmol/L (10-20); Carbon Dioxide 37 mmol/L (23-31); Chloride 94 mmol/L (98-107); Potassium 4.4 mmol/L (3.5-5.1); Sodium 141 mmol/L (136-145)
[2022-08-06 06:49] LABS: INR-International Normal Ratio 0.9; PTT 27.8 sec (22.0-33.0); Prothrombin Time 9.8 sec (9.5-12.1)
[2022-08-06] MEDS ORDERED: Albuterol Sulfate 2.5 mg/3 ml Neb NEB PRN (07:00)
[2022-08-06 07:38] VITALS: BMI 55.9
[2022-08-06] MEDS ORDERED: Furosemide 40 MG/4 ML VIAL SLOW IVP SCH (08:00)
[2022-08-06] MEDS: Losartan Potassium 50 MG TAB PO SCH (08:15)
[2022-08-06] MEDS: Enoxaparin Sodium 40 MG/0.4 ML SYRINGE SC SCH (08:15)
[2022-08-06] MEDS: Carvedilol 12.5 MG TAB PO SCH ×2 (08:15→17:07)
[2022-08-06] MEDS: Aspirin 81 mg Enteric Coated Tablet PO SCH (08:16)
[2022-08-06] MEDS: Ezetimibe 10 MG TAB PO SCH (08:16)
[2022-08-06] MEDS: Clopidogrel Bisulfate 75 MG TAB PO SCH (08:21)
[2022-08-06] MEDS: Potassium Chloride 20 MEQ TAB PO SCH (08:27)
[2022-08-06 09:16] LABS: Troponin I 0.013 ng/mL (< 0.028)
[2022-08-06] MEDS ORDERED: Furosemide 40 MG TAB PO SCH (14:00)
[2022-08-06] MEDS: Furosemide 40 MG TAB PO SCH (20:36)
[2022-08-06] MEDS ORDERED: Sertraline 25 MG TAB PO SCH (21:00)
[2022-08-07 06:58] VITALS: TEMP 97
[2022-08-07 09:01] VITALS: BP 116/67
[2022-08-07] MEDS: Furosemide 40 MG TAB PO SCH (09:02)
[2022-08-07] MEDS: Clopidogrel Bisulfate 75 MG TAB PO SCH (09:02)
[2022-08-07] MEDS: Carvedilol 12.5 MG TAB PO SCH (09:02)
[2022-08-07] MEDS: Losartan Potassium 50 MG TAB PO SCH (09:02)
[2022-08-07] MEDS: Enoxaparin Sodium 40 MG/0.4 ML SYRINGE SC SCH (09:03)
[2022-08-07] MEDS: Potassium Chloride 20 MEQ TAB PO SCH (09:03)
[2022-08-07] MEDS: Ezetimibe 10 MG TAB PO SCH (09:03)
[2022-08-07] MEDS: Aspirin 81 mg Enteric Coated Tablet PO SCH (09:03)
[2022-08-07 20:11] LABS: Hemoglobin A1c 4.4 % (4.0-6.0)
== END 2022-08-07 11:20 ==
LOC: CSHERS 04:12 → INTOOBSV 06:37 → CSHICU 06:37 → CSHTELE 18:45
PROVIDERS: ADMIT Family Medicine; ATTEND Internal Medicine
DX: R07.89 Other chest pain (principal); R91.8 Other nonspecific abnormal finding of lung field; I24.9 Acute ischemic heart disease, unspecified; I25.110 Atherosclerotic heart disease of native coronary artery with unstable angina pectoris; J44.9 Chronic obstructive pulmonary disease, unspecified; E66.2 Morbid (severe) obesity with alveolar hypoventilation; Z68.43 Body mass index [BMI] 50.0-59.9, adult; I10 Essential (primary) hypertension; K21.9 Gastro-esophageal reflux disease without esophagitis; E78.5 Hyperlipidemia, unspecified; Z20.822 Contact with and (suspected) exposure to COVID-19; J96.11 Chronic respiratory failure with hypoxia; J96.12 Chronic respiratory failure with hypercapnia; F17.210 Nicotine dependence, cigarettes, uncomplicated; Z79.82 Long term (current) use of aspirin; Z79.02 Long term (current) use of antithrombotics/antiplatelets; Z79.01 Long term (current) use of anticoagulants; Z79.899 Other long term (current) drug therapy; Z88.2 Allergy status to sulfonamides; Z88.8 Allergy status to other drugs, medicaments and biological substances; Z95.5 Presence of coronary angioplasty implant and graft
CPT/HCPCS: 80048; 83036; 83735; 84484 ×2; 85610; 85730; 93005; 94640 ×3; 94760; 99285; U0002; 36415; 96372; 96374; G0378; J1650; J1940; J7620

== ENCOUNTER 2022-08-19 13:52 | Inpatient (IN) | payer MEDICARE, MEDICAID ==
[2022-08-19 14:44] LABS: #Eosinphils 0.2 10x3/uL (0.0-0.5); #Monocytes 0.7 10x3/uL (0.0-1.1); #Neutrophils 5.3 10x3/uL (1.5-8.4); %Basophils 0.1 % (0.0-2.0); %Eosinophils 2.1 % (0.0-6.0); %Lymphocytes 20.2 % (18.0-47.0); %Monocytes 8.5 % (0.0-10.0); %Neutrophils 68.5 % (40.0-75.0); Hemoglobin 8.7 g/dL (12.0-15.5); Mean Corpuscular HGB CONC 28.8 g/dL (32.0-36.0); Mean Corpuscular Hemoglobin 29.3 pg (27.0-33.0); Mean Corpuscular Volume 101.7 fl (81.6-98.3); Mean Platelet Volume 11.4 fl (7.4-10.4); Platelet Count 274 10x3/uL (150-450); RBC Distribution Width 15.2 % (11.5-14.5); Red Blood Cell (RBC) Count 2.97 10x6/uL (3.90-5.03); White Blood Cell (WBC) Count 7.7 10x3/uL (3.5-10.5)
[2022-08-19 14:50] LABS: ALT (SGPT) 7 U/L (8-55); Albumin 3.2 g/dL (3.4-4.8); Alkaline Phosphatase 72 U/L (40-110); BUN (Urea Nitrogen) 18 mg/dL (9.8-20.1); Bilirubin, Total 0.3 mg/dL (0.2-1.2); Calc. Creatinine Clearance 0 mL/min (70-130); Calcium 8.7 mg/dL (7.8-10.44); Estimated GFR 77; Globulin 2.9 g/dL (2.4-3.5); Glucose 105 mg/dL (83-110); Protein, Total 6.1 g/dL (5.8-8.1)
[2022-08-19 14:57] LABS: Anion Gap 15 mmol/L (10-20); Carbon Dioxide 41 mmol/L (23-31); Chloride 92 mmol/L (98-107); Potassium 4.9 mmol/L (3.5-5.1); Sodium 143 mmol/L (136-145)
[2022-08-19 14:58] LABS: AST (SGOT) 19 U/L (5-34)
[2022-08-19 15:34] LABS: Hypochromia SLIGHT = 6-15 cells (100X) (0-5/hpf); Platelet Morphology Comment Appears Adequate
[2022-08-19 15:48] LABS: Actual Bicarbonate (HCO3v) 55 mEq/L (22-28); Base Excess 23.3 mEq/L (-2.0 to +3.0); Chloride (VBG) 92 mmol/L (98-106); Hemoglobin (Hb) 9.7 g/dL (11.7-16.1); Potassium (VBG) 4.47 mmol/L (3.70-5.30); Puncture Site Other Site; RapidComm Collect By CBN; Sodium 139.7 mmol/L (133-146); pH (venous) 7.25 (7.32-7.43)
[2022-08-19] MEDS ORDERED: Furosemide 100 MG/10 ML VIAL ONE (15:57)
[2022-08-19] MEDS ORDERED: Bisacodyl 5 MG TAB PO PRN (16:30)
[2022-08-19] MEDS ORDERED: HYDROcodone/Acetaminophen 5/325 mg Tablet PO PRN (16:30)
[2022-08-19] MEDS ORDERED: Acetaminophen 325 MG TAB PO PRN (16:30)
[2022-08-19] MEDS ORDERED: Ondansetron PF 4 MG/2 ML Vial IVP PRN (16:30)
[2022-08-19 17:57] LABS: Troponin I 0.018 ng/mL (< 0.028)
[2022-08-19 19:39] LABS: Bilirubin Neg (Negative); Blood, Urine Negative (Negative); Glucose, Urine (Dipstick) Normal (Negative); Ketone, Urine Negative (Negative); Leukocyte 25 (Negative); Nitrite Positive (Negative); Protein, Urine (Dipstick) Negative (Neg-Trace); Urobilinogen Normal mg/dL (Less than 2); pH, Urine 6.5 (5.0-9.0)
[2022-08-19 19:46] LABS: Clarity Hazy (Clear)
[2022-08-19 19:51] LABS: Bacteria/HPF 4+ HPF (None Seen); RBC/HPF None Seen HPF (0-3); Squamous Epithelial 0-3 HPF (0-3); WBC/HPF 0-3 HPF (0-3)
[2022-08-19 20:47] LABS: Troponin I 0.016 ng/mL (< 0.028)
[2022-08-19 20:49] LABS: SARS-CoV-2 NAA Rapid Test Not Detected (NotDetected)
[2022-08-19 21:20] VITALS: TEMP 98
[2022-08-19] MEDS ORDERED: Arformoterol 15 MCG/2 ML NEB NEB SCH (21:30)
[2022-08-19] MEDS ORDERED: Mometasone/Formoterol 200/5 60 PUFF INH SCH (21:30)
[2022-08-19] MEDS ORDERED: Cefepime 1 GM in Sodium Chloride 0.9% 100 ML IVPB SCH (21:30)
[2022-08-19] MEDS: methylPREDNISolone Sod Succ 40 MG VIAL IVP SCH (21:36)
[2022-08-19] MEDS: Famotidine/PF 20 mg/2ml Vial SLOW IVP SCH (21:36)
[2022-08-20] MEDS: methylPREDNISolone Sod Succ 40 MG VIAL IVP SCH ×2 (04:09→09:05)
[2022-08-20 04:58] LABS: ALT (SGPT) 8 U/L (8-55); AST (SGOT) 12 U/L (5-34); Albumin 3.3 g/dL (3.4-4.8); Alkaline Phosphatase 83 U/L (40-110); BUN (Urea Nitrogen) 18 mg/dL (9.8-20.1); Bilirubin, Total 0.4 mg/dL (0.2-1.2); Calc. Creatinine Clearance 131 mL/min (70-130); Calcium 8.6 mg/dL (7.8-10.44); Estimated GFR 80; Globulin 2.5 g/dL (2.4-3.5); Glucose 128 mg/dL (83-110); Protein, Total 5.8 g/dL (5.8-8.1)
[2022-08-20 05:24] LABS: Anion Gap 24 mmol/L (10-20); Carbon Dioxide 34 mmol/L (23-31); Chloride 91 mmol/L (98-107); Potassium 4.7 mmol/L (3.5-5.1); Sodium 144 mmol/L (136-145)
[2022-08-20 05:36] VITALS: BMI 58.4
[2022-08-20] MEDS ORDERED: Arformoterol 15 MCG/2 ML NEB NEB SCH (06:30)
[2022-08-20] MEDS ORDERED: Mometasone/Formoterol 200/5 60 PUFF INH SCH (06:30)
[2022-08-20] MEDS ORDERED: Furosemide 40 MG TAB PO SCH (07:30)
[2022-08-20 08:05] LABS: Actual Bicarbonate (HCO3v) 43 mEq/L (22-28); Base Excess 16.9 mEq/L (-2.0 to +3.0); Calcium, Ionized (venous) 1.01 mmol/L (1.16-1.32); Chloride (VBG) 92 mmol/L (98-106); Hemoglobin (Hb) 10.3 g/dL (11.7-16.1); Potassium (VBG) 4.66 mmol/L (3.70-5.30); Puncture Site Other Site; RapidComm Collect By CBN; Sodium 137.7 mmol/L (133-146); pH (venous) 7.48 (7.32-7.43)
[2022-08-20 08:17] LABS: #Monocytes 0.1 10x3/uL (0.0-1.1); #Neutrophils 5.8 10x3/uL (1.5-8.4); %Basophils 0.3 % (0.0-2.0); %Lymphocytes 11.5 % (18.0-47.0); %Neutrophils 86.6 % (40.0-75.0); Hemoglobin 9.1 g/dL (12.0-15.5); Mean Corpuscular HGB CONC 29.5 g/dL (32.0-36.0); Mean Corpuscular Hemoglobin 29.3 pg (27.0-33.0); Mean Platelet Volume 10.6 fl (7.4-10.4); Platelet Count 253 10x3/uL (150-450); RBC Distribution Width 15.1 % (11.5-14.5); Red Blood Cell (RBC) Count 3.11 10x6/uL (3.90-5.03); White Blood Cell (WBC) Count 6.7 10x3/uL (3.5-10.5)
[2022-08-20 08:43] LABS: Hypochromia SLIGHT = 6-15 cells (100X) (0-5/hpf)
[2022-08-20] MEDS ORDERED: Furosemide 40 MG/4 ML VIAL SLOW IVP SCH (09:00)
[2022-08-20] MEDS ORDERED: Cefepime 1 GM in Sodium Chloride 0.9% 100 ML IVPB SCH (09:00)
[2022-08-20] MEDS ORDERED: Enoxaparin Sodium 40 MG/0.4 ML SYRINGE SC SCH (09:00)
[2022-08-20] MEDS: Famotidine/PF 20 mg/2ml Vial SLOW IVP SCH (09:06)
[2022-08-20 12:03] VITALS: BP 119/74
== END 2022-08-20 18:25 | disposition hospice, inpatient (51) | DRG 189 ==
LOC: CSHERS 13:52 → CSHICU 20:50
PROVIDERS: ADMIT Student in an Organized Health Care Education/Training Program; ATTEND Family Medicine
PROC: 5A09357 Assistance with Respiratory Ventilation, Less than 24 Consecutive Hours, Continuous Positive Airway Pressure (ICD-10-PCS; principal; 2022-08-19)
DX: J96.21 Acute and chronic respiratory failure with hypoxia (principal); G93.41 Metabolic encephalopathy; E66.2 Morbid (severe) obesity with alveolar hypoventilation; J44.1 Chronic obstructive pulmonary disease with (acute) exacerbation; Z20.822 Contact with and (suspected) exposure to COVID-19; J96.22 Acute and chronic respiratory failure with hypercapnia; Z51.5 Encounter for palliative care; Z66 Do not resuscitate; I25.10 Atherosclerotic heart disease of native coronary artery without angina pectoris; I10 Essential (primary) hypertension; E78.5 Hyperlipidemia, unspecified; Z91.14 Patient's other noncompliance with medication regimen; Z95.5 Presence of coronary angioplasty implant and graft; Z79.82 Long term (current) use of aspirin; Z99.81 Dependence on supplemental oxygen; Z79.899 Other long term (current) drug therapy; Z79.02 Long term (current) use of antithrombotics/antiplatelets; Z88.8 Allergy status to other drugs, medicaments and biological substances; Z88.1 Allergy status to other antibiotic agents; Z88.2 Allergy status to sulfonamides; Z90.49 Acquired absence of other specified parts of digestive tract; Z90.710 Acquired absence of both cervix and uterus; Z98.49 Cataract extraction status, unspecified eye; Z87.891 Personal history of nicotine dependence
CPT/HCPCS: 36415; 71045; 80053; 81003; 81015; 82805; 83880; 84145; 84484; 85025; 85652; 86140; 93005; 94640; 94660; 94760; J0692; J1650; J1940; J2920; J3490; J7620; S0028